=== PATIENT | male | born 1985 | race Caucasian/White ===

== ENCOUNTER 2019-02-14 03:32 | Emergency (ER) | payer SELFPAY ==
[~2019-02-14] VITALS: Ht 162.6 cm; Wt 61.4 kg
[2019-02-14 06:58] VITALS: BP 129/83
[2019-02-14] MEDS ORDERED: CefTRIAXone SODIUM 1 GM/VIAL IM ONE (07:00)
[2019-02-14] MEDS ORDERED: LIDOCAINE/PF 1% 2 ML VIAL IM ONE (07:00)
== END 2019-02-14 07:17 | disposition home or self-care (01) ==
LOC: EMS 03:35
DX: L03.115 Cellulitis of right lower limb (principal); F17.210 Nicotine dependence, cigarettes, uncomplicated; F15.90 Other stimulant use, unspecified, uncomplicated; Z59.0 Homelessness
CPT/HCPCS: 73562; 96372; 99283; J0696; J3490